=== PATIENT | male | born 1995 | race Two or more races ===

== ENCOUNTER 2022-10-12 06:09 | Emergency (ER) | payer SELFPAY ==
[2022-10-12] MEDS ORDERED: ACETAMINOPHEN 500 MG TABLET PO STA (06:33)
[2022-10-12] MEDS ORDERED: ONDANSETRON ODT 4 MG TABLET TL STA (06:35)
--- NOTE | 2022-10-12 06:37 | ED Physician Documentation ---
PD HPI URI - Stated complaint Stated Complaint: MIGRANE/FEVER/COUGH - Chief complaint Chief Complaint: Resp - History obtained from History obtained from: Patient - Additional information Additional information: Patient is a 26-year-old male presenting for evaluation of 3-day history of fever, chills, body aches, nonproductive cough. He reports having nausea without emesis. He denies having difficulty breathing or chest pain. He last use ibuprofen last night around 6 PM. He has 2 lower molars that have been bothering him for the last year and is awaiting an appointment for root canals through the [place].Because of the dental pain he has reported having some difficulty with eating but has been doing well with water and other liquids.He denies any known sick contacts.Other than ibuprofen he has not taken any other medications.He is unsure if he received a flu shot this year. He did take a home COVID test which was negative. Review of Systems Constitutional: reports: Fever, Myalgias Nose: denies: Congestion Cardiac: denies: Chest pain / pressure Respiratory: reports: Cough. denies: Dyspnea GI: reports: Nausea. denies: Abdominal Pain, Vomiting : denies: Dysuria Neurologic: reports: Headache PD PAST MEDICAL HISTORY - Past Medical History Past Medical History: No - Past Surgical History Past Surgical History: No - Present Medications Home Medications: Ambulatory Orders Medication Instructions Recorded Confirmed Ondansetron Odt [Zofran] 4 mg TL Q6H PRN #10 tablet 10/12/22 - Allergies Allergies/Adverse Reactions: Allergies Allergy/AdvReac Type Severity Reaction Status Date / Time No Known Drug Allergies Allergy Verified 10/12/22 06:20 - Social History Does the pt smoke?: No Smoking Status: Never smoker Does the pt drink ETOH?: Yes ETOH Use: Wine, Beer Does the pt have substance abuse?: No - Immunizations Immunizations are current?: Yes PD ED PE NORMAL - General General: Alert and oriented X 3, No acute distress, Well developed/nourished - HEENT HEENT: Atraumatic, Ears normal, Moist mucous membranes, Pharynx benign - Neck Neck: Supple, no meningeal sign - Cardiac Cardiac: RRR, Strong equal pulses - Respiratory Respiratory: No respiratory distress, Clear bilaterally - Abdomen Abdomen: Soft, Non tender - Derm Derm: Warm and dry - Extremities Extremities: No edema - Neuro Neuro: Normal speech Results - Vitals Vitals: Vital Signs - 24 hr 10/12/22 10/12/22 06:20 06:41 Temperature 39.4 C H 39.2 C H Heart Rate 98 90 Respiratory 16 16 Rate Blood Pressure 126/66 125/62 O2 Saturation 98 99 Oxygen O2 Source Room air - Labs Labs: Laboratory Tests 10/12/22 06:27 Nasal Adenovirus (PCR) NOT DETECTED Nasal B. parapertussis DNA (PCR) NOT DETECTED Nasal Coronavir 229E PCR NOT DETECTED Nasal Coronavir HKU1 PCR NOT DETECTED Nasal Coronavir NL63 PCR NOT DETECTED Nasal Coronavir OC43 PCR NOT DETECTED Nasal Enterovir/Rhinovir PCR NOT DETECTED Nasal Influenza A H3 PCR DETECTED A Nasal Influenza B PCR NOT DETECTED Nasal Parainfluen 1 PCR NOT DETECTED Nasal Parainfluen 2 PCR NOT DETECTED Nasal Parainfluen 3 PCR NOT DETECTED Nasal Parainfluen 4 PCR NOT DETECTED Nasal RSV (PCR) NOT DETECTED Nasal B.pertussis DNA PCR NOT DETECTED Nasal C.pneumoniae (PCR) NOT DETECTED Cy Human Metapneumo PCR NOT DETECTED Nasal M.pneumoniae (PCR) NOT DETECTED Nasal SARS-CoV-2 (PCR) NOT DETECTED PD MEDICAL DECISION MAKING - ED course ED course: Pt with flu like symptoms x 3 days. Febrile but otherwise stable VS and clinically well appearing. Suspect Influenza. Patient is outside of window for Tamiflu.No signs of labored breathing and has clear breath sounds. He is able to continue to hydrate orally. Patient counseled on continued supportive care. He did want a respiratory panel which was obtained.Patient also reports having dental pain ongoing for greater than a year and is awaiting [facility] Do not see signs of infection or abscess.Patient reports the pain is unchanged over 1 year. Patient and at bedside are counseled regarding strict return precautions. Patient is ambulatory at discharge. Departure - Departure Disposition: 01 Home, Self Care Clinical Impression: Flu-like symptoms Condition: Stable Instructions: ED Viral Syndrome Prescriptions: Ondansetron Odt [Zofran] 4 mg TL Q6H PRN #10 tablet PRN Reason: Nausea / Vomiting Comments: Your symptoms are likely due to a viral illness. We are seeing a high prevalence of influenza a, RSV and other common cold viruses in our community right now. Your respiratory panel is pending. This will check for COVID, influenza, RSV and a number of other common cold viruses. We will notify you if it is positive for COVID. Otherwise you can check the patient portal for your results. Please continue with acetaminophen or ibuprofen as needed for fevers and body aches, plenty of fluids/hydration and rest. Return to the ER with any worsening symptoms such as difficulty breathing or vomiting. I will send a prescription for antinausea medications to [facility] in [place]. [facility] that you are in [facility]. I will also include other dental clinics below which may be an alternative for you. A couple of low cost options for dental care include: [facility] in [place], calls [phone] for an appointment Or [facility] in [place], call [phone] for an appointment. Forms: Activity restrictions Discharge Date/Time: 10/12/22 06:45
[2022-10-12 06:48] VITALS: BP 125/62
[2022-10-12 07:39] LABS: B. PARAPERTUSSIS- RESP PCR PAN NOT DETECTED; B. PERTUSSIS- RESP PCR PANEL NOT DETECTED; C. PNEUMONIAE- RESP PCR PANEL NOT DETECTED; CORONAVIRUS 229E-RESP PCR NOT DETECTED; CORONAVIRUS HKU1-RESP PCR NOT DETECTED; CORONAVIRUS NL63-RESP PCR NOT DETECTED; CORONAVIRUS OC43-RESP PCR NOT DETECTED; HUMAN METAPNEUMOVIRUS NOT DETECTED; INFLUENZA A H3- RESP PCR PANEL DETECTED; INFLUENZA B - RESP PCR PANEL NOT DETECTED; M. PNEUMONIAE- RESP PCR PANEL NOT DETECTED; PARAINFLUENZA VIRUS 1 NOT DETECTED; PARAINFLUENZA VIRUS 2 NOT DETECTED; PARAINFLUENZA VIRUS 3 NOT DETECTED; PARAINFLUENZA VIRUS 4 NOT DETECTED; RHINOVIRUS/ENTEROVIRUS NOT DETECTED; RSV- RESP PCR PANEL NOT DETECTED; SARS-CoV-2 -RESP PCR PANEL NOT DETECTED
== END 2022-10-12 06:45 | disposition home or self-care (01) ==
LOC: ED 06:09
DX: J10.1 Influenza due to other identified influenza virus with other respiratory manifestations (principal); R11.0 Nausea; K08.89 Other specified disorders of teeth and supporting structures
CPT/HCPCS: 87633; 99282; 99283; A9270; Q0162